=== PATIENT | female | born 1955 | race Caucasian/White ===

== ENCOUNTER → 2016-12-12 | Outpatient (CLI) | payer OTHER ==
[~2016-12-12] MED LIST: ADVAIR; AMLO5TAB2 PO; CETI10TA23 PO; FAMO40TA72 PO; FLUO10CA29 PO; FLUT1DIS26 IH; FLUT9.9S NS; MILK THISTLE; NARA1TAB PO; OMG1KC PO; PRX20T PO; VITAMINES; [UNRECOGNIZED DRUG - OTHER]; [UNRECOGNIZED DRUG - REMARK]; [UNRECOGNIZED DRUG - REMARK]
--- NOTE | 2016-12-13 17:41 | Diagnostic Imaging Report ---
Bilateral screening mammogram 2D views with tomosynthesis. The current study was also evaluated with a Computer Aided Detection (CAD) system. INDICATION: Screening. No current complaints stated on the questionnaire. COMPARISON: 10/21/15 FINDINGS: The breasts are composed of heterogeneously dense parenchyma which may decrease mammographic sensitivity. Allowing for technique and positional differences, no suspicious change is seen. IMPRESSION: No significant change. ACR BI-RADS Category 2: Benign findings. Result letter will be mailed to the patient. Note: At least 10% of breast cancer is not imaged by mammography. Dictated by: Dictated on workstation # [id number]
== END ==
LOC: RAD 10:34
PROVIDERS: ATTEND Family Medicine
DX: Z12.31 Encounter for screening mammogram for malignant neoplasm of breast (principal)
CPT/HCPCS: 77067

== ENCOUNTER → 2017-12-15 | Outpatient (CLI) | payer OTHER ==
--- NOTE | 2017-12-15 11:53 | Diagnostic Imaging Report ---
INDICATION: Routine screening. COMPARISON: 12/12/2016 and 10/21/2015. TECHNIQUE: 2D and 3D bilateral screening mammography was performed with CAD. FINDINGS: Both breasts remain heterogeneously dense, limiting the sensitivity of mammography. The benign nodular density in the upper outer right breast appears stable. A circumscribed rounded density in the medial right breast is noted and appears stable. There are benign calcifications bilaterally. No mass or malignant-appearing microcalcifications are seen. The axillae are unremarkable. IMPRESSION: No mammographic features suspicious for malignancy are identified. ACR BI-RADS Category 2: Benign findings. Result letter will be mailed to the patient. Note: At least 10% of breast cancer is not imaged by mammography. Dictated by: Dictated on workstation # [id number]
== END ==
LOC: RAD 10:06
PROVIDERS: ATTEND Family Medicine
DX: Z12.31 Encounter for screening mammogram for malignant neoplasm of breast (principal)
CPT/HCPCS: 77067

== ENCOUNTER → 2018-08-29 | Outpatient (CLI) | payer OTHER ==
[~2018-08-29] MED LIST changes: -AMLO5TAB2 PO; +AMLO5TAB9 PO; +RT-ALBUTEROL SULF 2.5 MG/3 ML PRE-MIX VIAL INH ONE; +RT-ALBUTEROL SULF 2.5 MG/3 ML PRE-MIX VIAL ONE
== END ==
LOC: RT 12:53
PROVIDERS: ATTEND Nurse Practitioner Family
DX: J45.909 Unspecified asthma, uncomplicated (principal); R06.09 Other forms of dyspnea; R05 Cough
CPT/HCPCS: 94060; 94726; 94729

== ENCOUNTER → 2018-09-28 | Outpatient (CLI) | payer OTHER ==
[~2018-09-28] MED LIST changes: +CATHETER FLUSH 10 ML SYR IV PRN; +HOLD METFORMIN - RECEIVED CONTRAST 20 ML VIAL IV SCH; +IOHEXOL 350 MG/ML 100 ML (OMNIPAQUE 350) VIAL IV ONE; -RT-ALBUTEROL SULF 2.5 MG/3 ML PRE-MIX VIAL INH ONE; -RT-ALBUTEROL SULF 2.5 MG/3 ML PRE-MIX VIAL ONE
[2018-09-28 11:07] LABS: CREATININE SERUM 1.01 MG/DL (0.60-1.30)
--- NOTE | 2018-09-28 13:27 | Diagnostic Imaging Report ---
PROCEDURE: CT chest with contrast only. TECHNIQUE: Multiple contiguous axial images were obtained through the chest after administration of intravenous contrast. Auto Exposure Controls were utilized during the CT exam to meet ALARA standards for radiation dose reduction. INDICATION: Shortness of breath. FINDINGS: There is a patchy alveolar nodular infiltrate in the posterior segment of the right upper lobe. Lungs are otherwise clear. There are no effusions or pneumothoraces. There is no hilar or mediastinal lymphadenopathy. IMPRESSION: Right upper lobe pneumonia. Dictated by: Dictated on workstation # [id number]
== END ==
LOC: RAD 10:37
PROVIDERS: ATTEND Nurse Practitioner Family
DX: J18.1 Lobar pneumonia, unspecified organism (principal); J45.909 Unspecified asthma, uncomplicated
CPT/HCPCS: 36415; 71260; 82565; 84520

== ENCOUNTER 2018-10-17 05:47 | Outpatient (CLI) | payer OTHER ==
[~2018-10-17] VITALS: Ht 162.6 cm; Wt 67.1 kg
[~2018-10-17 05:47] MED LIST changes: -CATHETER FLUSH 10 ML SYR IV PRN; -HOLD METFORMIN - RECEIVED CONTRAST 20 ML VIAL IV SCH; -IOHEXOL 350 MG/ML 100 ML (OMNIPAQUE 350) VIAL IV ONE
[2018-10-17] MEDS ORDERED: LISI-592 PO (11:14)
[2018-10-17] MEDS ORDERED: FLUT12AE6 IH (11:14)
[2018-10-17] MEDS ORDERED: MONT10TA24 PO (11:14)
== END 2018-10-17 12:18 | disposition home or self-care (01) ==
LOC: PREOP 05:47
PROVIDERS: ATTEND Internal Medicine Critical Care Medicine
DX: Z01.818 Encounter for other preprocedural examination (principal)

== ENCOUNTER 2018-10-18 09:58 | Day surgery (SDC) | payer OTHER ==
[~2018-10-18] VITALS: Ht 162.6 cm; Wt 67.1 kg
[~2018-10-18 09:58] MED LIST changes: +FLUT12AE6 IH; +LISI-592 PO; +MONT10TA24 PO
[2018-10-18] MEDS ORDERED: LIDOCAINE PF 2% 5 ML (XYLOCAINE) VIAL INJ ONE (09:59)
[2018-10-18] MEDS ORDERED: LIDOCAINE JELLY 2% 6 ML SYRINGE MM ONE (09:59)
[2018-10-18] MEDS ORDERED: LIDOCAINE PF 1% 2 ML VIAL IJ ONE (09:59)
[2018-10-18] MEDS ORDERED: NS IV 500 ML 500 ML ONE (10:06)
--- NOTE | 2018-10-18 10:14 | Progress Note-Pre Operative ---
Pre-Operative Progress Note H&P Reviewed The H&P was reviewed, patient examined and no changes noted. Date Seen by Provider: October 18, 2018 Time Seen by Provider: 10:45 Date H&P Reviewed: October 18, 2018 Time H&P Reviewed: 10:13 Pre-Operative Diagnosis: RML chronic infiltration CARMEN PORTER DO October 18, 2018 10:14
--- NOTE | 2018-10-18 10:15 | Pre-Op Note & Conscious Sedat ---
Pre-Operative Progress Note H&P Reviewed The H&P was reviewed, patient examined and no changes noted. Date H&P Reviewed: October 18, 2018 Time H&P Reviewed: 10:14 Conscious Sedation Pre-Proced Time 10:13 ASA Score 3 For ASA 3 and 4: Consider anesthesia and medical clearance. Also, for patients with a history of failed moderate sedation consider anesthesia. Airway Lungs Heart ASA score ASA 1: a normal healthy patient ASA 2: a patient with a mild systemic disease (mid diabetes, controlled hypertension, obesity ASA 3: a patient with a severe systemic disease that limits activity (angina, COPD, prior Myocardial infarction) ASA 4: a patient with an incapacitating disease that is a constant threat to life (CHF, renal failure) ASA 5: a moribund patient not expected to survive 24 hrs. (ruptured aneurysm) ASA 6: a declared brain- patient whose organs are being harvested. For emergent operations, add the letter E after the classification Mallampati Classification Grade 3 Sedation Plan Plan communicated to team members, Discussed options with patient/fam, Discussed risks with patient/fam The patient is an appropriate candidate to undergo the planned procedure, sedation, and anesthesia. The patient immediately re-assessed prior to indication. CARMEN PORTER DO October 18, 2018 10:15
[2018-10-18] MEDS ORDERED: MIDAZOLAM 2 MG/2 ML (VERSED) VIAL ONE ×4 (10:27)
[2018-10-18] MEDS ORDERED: fentaNYL INJECTION 100 MCG/2 ML AMP ONE ×2 (10:27)
[2018-10-18] MEDS ORDERED: NS IV 500 ML 500 ML IV PRN (11:32)
[2018-10-18 11:36] VITALS: BP 121/82
[2018-10-18 11:45] VITALS: BP 126/71
[2018-10-18] MEDS ORDERED: MIDAZOLAM 2 MG/2 ML (VERSED) VIAL IVP ONE (11:45)
[2018-10-18] MEDS ORDERED: fentaNYL INJECTION 100 MCG/2 ML AMP IVP ONE (11:45)
--- NOTE | 2018-10-18 11:55 | Diagnostic Imaging Report ---
INDICATION: Post bronchoscopy. FINDINGS: There is no pneumothorax or hemothorax. No effusion or focal pneumonia. No failure. IMPRESSION: No acute finding or post bronchoscopy complication apparent at frontal chest x-ray. Dictated by: Dictated on workstation # [id number]
[2018-10-18 12:10] VITALS: BP 121/87
[2018-10-18 12:56] VITALS: BP 121/87
--- NOTE | 2018-10-18 15:33 | Diagnostic Imaging Report ---
Indication: Fluoroscopy during bronchoscopy. Fluoroscopy was provided for Dr. Rodriguez during bronchoscopy. 7 seconds of fluoroscopy was utilized. Impression: Fluoroscopy during bronchoscopy. Dictated by: Dictated on workstation # [id number]
--- NOTE | 2018-10-31 11:00 | Pulmonary Procedures ---
Pulmonary Procedures Date of Procedure Date of Service: October 18, 2018 (late note for 10/18) Bronch Bronchoscopy with RML bronchoalveolar lavage (BAL), Bilateral washes and, RML transbronchial brushes. Preop DX infiltrate Postop DX: same Complications: none After informed consent obtained and formal time out pt was sedated using Fentanyl and Versed. Bronchoscope was advanced through the nare and vocal cords. 1% lidocaine was used to anesthetize vocal cords, epiglottis, rosalinda, and left/right main stem bronchus. An anatomical tour was undertaken down to the segmental bronchi bilaterally. No endobronchial lesions noted. From the RML bronchoalveolar lavage (BAL), Bilateral washes and, transbronchial RML brushes. were obtained. Pt tolerated procedure well. No complications noted. Stat CXR is pending. CARMEN PORTER DO Oct 31, 2018 11:00
== END 2018-10-18 12:20 | disposition home or self-care (01) ==
LOC: ENDO 09:58
PROVIDERS: ATTEND Internal Medicine Critical Care Medicine
DX: R06.09 Other forms of dyspnea (principal); J45.909 Unspecified asthma, uncomplicated; R05 Cough; R91.8 Other nonspecific abnormal finding of lung field; K21.9 Gastro-esophageal reflux disease without esophagitis; Z79.899 Other long term (current) drug therapy
CPT/HCPCS: 71045; 87015; 87070; 87101; 87116; 87205; 87206; 88112; 88305; 88312; 88341; 88342

== ENCOUNTER → 2019-01-10 | Outpatient (CLI) | payer OTHER ==
[~2019-01-10] MED LIST changes: +HOLD METFORMIN - RECEIVED CONTRAST 20 ML VIAL IV SCH; +IOHEXOL 350 MG/ML 100 ML (OMNIPAQUE 350) VIAL IV ONE; +NS 100 ML (IVPB) BAG IV ONE
[2019-01-10 09:33] LABS: BUN/CREATININE RATIO 18; CREATININE SERUM 0.89 MG/DL (0.60-1.30); GFR ESTIMATED > 60
--- NOTE | 2019-01-10 10:10 | Diagnostic Imaging Report ---
PROCEDURE: CT chest with contrast only. TECHNIQUE: Multiple contiguous axial images were obtained through the chest after administration of intravenous contrast. Auto Exposure Controls were utilized during the CT exam to meet ALARA standards for radiation dose reduction. INDICATION: Cough. COMPARISON: Comparison is 09/28/2018. FINDINGS: There is an area of consolidation with surrounding nodularity in the right upper lobe and to a lesser degree in the left upper lobe. Findings in keeping with an infection. This is increased slightly from the prior exam. No edema. No pleural effusion or pneumothorax. Heart size is normal. No pericardial effusion. Aorta is normal in caliber. No central pulmonary embolism. No axillary, supraclavicular or mediastinal lymphadenopathy. Limited views of the upper abdomen are unremarkable. There are no suspicious osseous lesions. IMPRESSION: 1. Slightly increased consolidation and nodularity involving the right upper lobe and to a lesser degree the left upper lobe. Findings in keeping with an infectious process, consider fungal or atypical organisms given that it has not resolved. Dictated by: Dictated on workstation # [id number]
== END ==
LOC: RAD 09:06
PROVIDERS: ATTEND Nurse Practitioner Family
DX: J18.1 Lobar pneumonia, unspecified organism (principal); J45.909 Unspecified asthma, uncomplicated; J98.11 Atelectasis; R91.1 Solitary pulmonary nodule
CPT/HCPCS: 36415; 71260; 82565; 84520

== ENCOUNTER → 2019-01-16 | Outpatient (CLI) | payer OTHER ==
[~2019-01-16] MED LIST changes: -HOLD METFORMIN - RECEIVED CONTRAST 20 ML VIAL IV SCH; -IOHEXOL 350 MG/ML 100 ML (OMNIPAQUE 350) VIAL IV ONE; -NS 100 ML (IVPB) BAG IV ONE
[2019-01-16 11:22] LABS: BUN/CREATININE RATIO 20; GFR ESTIMATED > 60
== END ==
LOC: RAD 10:46
PROVIDERS: ATTEND Nurse Practitioner Family
DX: J98.11 Atelectasis (principal); J45.909 Unspecified asthma, uncomplicated; R91.8 Other nonspecific abnormal finding of lung field
CPT/HCPCS: 36415; 82565; 84520; 93005

== ENCOUNTER → 2019-03-04 | Outpatient (CLI) | payer OTHER ==
--- NOTE | 2019-03-04 12:12 | Diagnostic Imaging Report ---
INDICATION: Routine screening. COMPARISON: 12/15/2017 and 12/12/2016. TECHNIQUE: 2D and 3D bilateral screening mammography was performed with CAD. FINDINGS: Scattered fibroglandular densities are identified bilaterally. The intraparenchymal lymph node in the upper-outer right breast appears stable. The nodular density in the medial aspect of the right breast is also stable. There are benign calcifications bilaterally. No spiculated mass or malignant appearing microcalcifications are seen. The axillae are unremarkable. IMPRESSION: No mammographic features suspicious for malignancy are identified. ACR BI-RADS Category 2: Benign findings. Result letter will be mailed to the patient. Note: At least 10% of breast cancer is not imaged by mammography. Dictated by: Dictated on workstation # [id number]
== END ==
LOC: RAD 10:30
PROVIDERS: ATTEND Family Medicine
DX: Z12.31 Encounter for screening mammogram for malignant neoplasm of breast (principal)
CPT/HCPCS: 77067

== ENCOUNTER → 2019-09-26 | Outpatient (CLI) | payer OTHER ==
[~2019-09-26] MED LIST changes: +HOLD METFORMIN - RECEIVED CONTRAST 20 ML VIAL IV SCH; +IOHEXOL 350 MG/ML 100 ML (OMNIPAQUE 350) VIAL IV ONE; -MONT10TA24 PO; +MONT10TA26 PO; +NS 100 ML (IVPB) BAG IV ONE
[2019-09-26 10:08] LABS: CREATININE SERUM 0.99 MG/DL (0.60-1.30)
--- NOTE | 2019-09-26 11:53 | Diagnostic Imaging Report ---
CLINICAL INDICATION: Followup chest CT scan from 01/10/2019 with lung parenchymal abnormalities. EXAM: Axial CT scan of the chest performed with 70 mL of Omnipaque 350 IV contrast. Sagittal and coronal reformatted images are created. Auto Exposure Controls were utilized during the CT exam to meet ALARA standards for radiation dose reduction. COMPARISON: CT scan of the chest with contrast dated 01/10/2019. There are stable bilateral apical pleural parenchymal thickening/scarring. There is improved aeration of the posterior aspect of the right upper lobe with residual areas of minimal bronchiectasis with grouped area of centrilobular nodules and slight tree-in-bud appearance in a similar distribution of the area of parenchymal abnormality and consolidation. There is no significant residual consolidation in the area. Stable small amount of amorphous peripheral consolidation in the anterior right lung base likely representing scarring. There is decrease amount in size of the patchy cleo-bronchovascular nodular areas in the posterior left upper lobe. With residual small amount remaining. Stable minimal atelectasis or scarring in the basilar left lingular region. Remainder of lungs are clear and stable. There is no developing abnormality seen. There is no pleural effusion or pneumothorax. Thyroid gland is unremarkable. Stable size nonspecific mediastinal and right hilar lymph nodes. Stable marker precarinal lymph node measuring roughly 10 mm x 15 mm in AP and transverse dimensions. Small hiatal hernia seen. Visualized portions upper abdominal structures show no other significant abnormality. There are degenerative spurs involving the thoracic spine. IMPRESSION: 1: There is interval decrease in amount and size of the airspace opacities involving the posterior bilateral right upper lobes (right side more than the left) with residual small amount of cleo-bronchovascular nodular areas. This may be related to chronic infectious or inflammatory process. Followup chest CT scan in 6 months is suggested to evaluate for complete resolution. 2: Stable mildly prominent mediastinal and right hilar lymph nodes. Dictated by: Dictated on workstation # [id number]
== END ==
LOC: RAD 09:35
PROVIDERS: ATTEND Nurse Practitioner Family
DX: R91.8 Other nonspecific abnormal finding of lung field (principal); R05 Cough
CPT/HCPCS: 36415; 71260; 82565; 84520

== ENCOUNTER → 2020-03-02 | Outpatient (CLI) | payer OTHER ==
[~2020-03-02] MED LIST changes: -HOLD METFORMIN - RECEIVED CONTRAST 20 ML VIAL IV SCH; -IOHEXOL 350 MG/ML 100 ML (OMNIPAQUE 350) VIAL IV ONE; -NS 100 ML (IVPB) BAG IV ONE
== END ==
LOC: LABNPT 05:58
PROVIDERS: ATTEND Orthopaedic Surgery
DX: Z01.812 Encounter for preprocedural laboratory examination (principal); Z20.828 Contact with and (suspected) exposure to other viral communicable diseases
CPT/HCPCS: 87635

== ENCOUNTER → 2020-05-11 | Outpatient (CLI) | payer OTHER ==
[~2020-05-11] MED LIST changes: +AMLO-250 PO; -AMLO5TAB9 PO; +CATHETER FLUSH 10 ML SYR IV PRN; +HOLD METFORMIN - RECEIVED CONTRAST 20 ML VIAL IV SCH; +IOHEXOL 350 MG/ML 100 ML (OMNIPAQUE 350) VIAL IV ONE; -MONT10TA26 PO; +MONT10TA97 PO; +NS 100 ML (IVPB) BAG IV ONE
[2020-05-11 13:23] LABS: BUN/CREATININE RATIO 22; CREATININE SERUM 0.87 MG/DL (0.60-1.30); GFR ESTIMATED > 60
--- NOTE | 2020-05-11 15:13 | Diagnostic Imaging Report ---
PROCEDURE: CT chest with contrast only. TECHNIQUE: Multiple contiguous axial images were obtained through the chest after administration of intravenous contrast. Auto Exposure Controls were utilized during the CT exam to meet ALARA standards for radiation dose reduction. DATE: 05/11/2020 COMPARISON: CT chest September 26, 2019. INDICATION: 64-year-old female, history of cough. Followup pulmonary nodules. FINDINGS: There is a 5 mm noncalcified nodule in the right lung apex on axial image 13 which is unchanged. This is unchanged since at least January 12, 2015. There is a 4 mm noncalcified right upper lobe pulmonary nodule which appears to be a pleurally based on axial image 44 which is unchanged since the recent exam. There are tree-in-bud micronodules present in the right upper lobe, right middle lobe, and left upper lobe. The degree of tree-in-bud nodularity is essentially unchanged. Tree-in-bud nodularity in this distribution is present dating back to at least January 12, 2015. There is no new or enlarging pulmonary nodule. The central airways are patent. There is no pneumothorax. There is no pleural effusion. There is no identified central pulmonary embolus. There is limited evaluation for peripheral pulmonary emboli given the timing of the contrast bolus. The heart is not enlarged. There is no identified pericardial effusion. There is no identified abnormally enlarged mediastinal, hilar, or axillary lymph node which meets CT size criteria for adenopathy. There is mild diffuse fatty infiltration of the liver. There are mild atherosclerotic calcifications. There is a subcentimeter sclerotic lesion of the L2 vertebral body on axial image 105 which most likely relates to a small benign bone island although cannot be definitively characterized. There is no aggressive appearing bone lesion. There are degenerative changes of the spine. IMPRESSION: CT CHEST. 1. 4 mm pleural-based right upper lobe pulmonary nodule which is stable since the most recent comparison CT chest although not definitely present on January 12, 2015. There is a 5 mm benign noncalcified right upper lobe pulmonary nodule stable since at least 2014. 2. Tree-in-bud nodularity in the right upper lobe, right middle lobe, and left upper lobe which is seen dating back to at least January 12, 2015 and has not increased in extent. This is compatible to sequela of prior process spreading via endobronchial means which is most likely the result or prior infectious bronchiolitis given distribution. Sequela of prior aspiration is the additional differential diagnostic consideration. 3. No evidence of an acute cardiopulmonary abnormality currently. 4. Mild diffuse fatty infiltration of the liver. Dictated by: Dictated on workstation # [id number]
== END ==
LOC: RAD 11:53
PROVIDERS: ATTEND Internal Medicine Critical Care Medicine
DX: Z01.812 Encounter for preprocedural laboratory examination (principal); R91.8 Other nonspecific abnormal finding of lung field; K76.0 Fatty (change of) liver, not elsewhere classified; R59.1 Generalized enlarged lymph nodes
CPT/HCPCS: 36415; 71260; 82565; 84520

== ENCOUNTER → 2021-03-17 | Outpatient (CLI) | payer MEDICARE, OTHER ==
[~2021-03-17] MED LIST changes: -CATHETER FLUSH 10 ML SYR IV PRN; -HOLD METFORMIN - RECEIVED CONTRAST 20 ML VIAL IV SCH; -IOHEXOL 350 MG/ML 100 ML (OMNIPAQUE 350) VIAL IV ONE; +MONT10TA32 PO; -MONT10TA97 PO; -NS 100 ML (IVPB) BAG IV ONE
--- NOTE | 2021-03-17 11:35 | Diagnostic Imaging Report ---
PROCEDURE: CT chest without contrast. TECHNIQUE: Multiple contiguous axial images were obtained through the chest without the use of intravenous contrast. Auto Exposure Controls were utilized during the CT exam to meet ALARA standards for radiation dose reduction. DATE: March 17, 2021. COMPARISON: CT chest May 11, 2020. INDICATION: 65-year-old female, followup pulmonary nodule. PROCEDURE: Axial noncontrasted CT images of the chest. Noncontrasted limits the evaluation of the mediastinum and vascular structures. FINDINGS: There is a 6 mm nodule in the right lung apex on axial image 21. There is tree-in-bud nodularity in the right upper lobe and right middle lobe. There is no pneumothorax. There is no pleural effusion. The central airways are patent. The heart is not enlarged. There is no pericardial effusion. There is no identified abnormally enlarged mediastinal or axillary lymph node meeting CT size criteria for adenopathy. There is an accessory splenule. Additional limited assessment of the partially imaged portions of the upper abdomen is unremarkable. There are multilevel degenerative changes of the spine. There is no acute bony abnormality. There is partial ankylosis across the T4-T5 disc space. IMPRESSION: 1. There is a 6 mm nodule in the right lung apex which is unchanged since at least September 2018, consistent with benign etiology. The previously noted 4 mm pleurally based right upper lobe pulmonary nodule is stable since April 2020. 2. Tree-in-bud nodularity present in the right upper lobe and right middle lobe is also unchanged and likely relates to sequela of prior process spreading via endobronchial means which is most likely the result of prior infectious bronchiolitis given distribution. Dictated by: Dictated on workstation # [id number]
--- NOTE | 2021-03-17 12:18 | Diagnostic Imaging Report ---
INDICATION: Routine screening. Comparison is made with prior mammogram from 03/04/2019 and 12/15/2017. 2-D and 3-D bilateral screening mammography was performed with CAD. Both breasts are heterogeneously dense, limiting the sensitivity of mammography. There are benign nodules in the right breast appears stable. No new mass or malignant appearing microcalcifications are seen. There are benign calcifications in both breasts. The axillae are unremarkable. IMPRESSION: BI-RADS Category 2 No mammographic features suspicious for malignancy are identified. ACR BI-RADS Category 2: Benign findings. Result letter will be mailed to the patient. Note: At least 10% of breast cancer is not imaged by mammography. Dictated by: Dictated on workstation # [id number]
== END ==
LOC: RAD 10:02
PROVIDERS: ATTEND Family Medicine
DX: Z12.31 Encounter for screening mammogram for malignant neoplasm of breast (principal); R91.8 Other nonspecific abnormal finding of lung field
CPT/HCPCS: 71250; 77063; 77067

== ENCOUNTER 2021-07-26 08:01 | Emergency (ER) | payer MEDICARE ==
[~2021-07-26] VITALS: Ht 162 cm; Wt 66.6 kg
[~2021-07-26 08:01] MED LIST changes: -CETI10TA23 PO; +CETI10TA24 PO; +MONT-40 PO; -MONT10TA32 PO
--- NOTE | 2021-07-26 08:26 | ED Headache ---
General Chief Complaint: Head/Cervical Problems Stated Complaint: NECK / HEAD PAIN Nursing Triage Note: PT PRESENTS TO ED VIA POV FROM HOME WITH COMPLAINTS OF LEON X ONE MONTH. PT REPORTS SHE WENT TO THE CHIROPRACTER ON MONDAY AND MONDAY LAST WEEK AND HAS HAD INCREASED NECK PAIN AND LEON SINCE. Source: patient Exam Limitations: no limitations History of Present Illness Date Seen by Provider: Jul 26, 2021 Time Seen by Provider: 08:13 Initial Comments Patient is a 65yo female that has had intermittent LEON for about 1 month - taking "lots" of ibuprofen. She states she has been applying ice packs. Movement at the neck hurts. She states that she went and saw the Chiropracter on Monday and Monday of last week and her headache significantly increased in intensity. "Ibuprofen isnt working". She denies any vision change, speeck difficulty. No arm numbness, weakness or tingling. No other associated symptoms other than severe pain that she rates as currently an "8 1/2". SHe has a history of smoking (quit 30y ago) and takes medication for High blood pressure. Gerd. Uses an inhaler. No trauma reported. All other ROS reviewed and negative except as stated. Timing/Duration: constant, increasing Severity/Quality: severe, achy, pressure, throbbing Location: occipital Prior Headaches/Recent Trauma: occasional headaches Modifying Factors: worse with movement Associated Symptoms: denies symptoms Allergies and Home Medications Allergies Coded Allergies: Penicillins (Unverified Allergy, Mild, "DID SOMETHING FUNNY TO HER EYES", 10/17/18) Patient Home Medication List Home Medication List Reviewed: Yes Amlodipine Besylate (Amlodipine Besylate) 5 Mg Tablet, 5 MG PO DAILY, (Reported) Entered as Reported by: HAFSA NEWTON on 02/04/15942 Cetirizine HCl (Cetirizine HCl) 10 Mg Tab.chew, 10 MG PO DAILY, (Reported) Entered as Reported by: HAFSA NEWTON on 02/04/15943 Famotidine (Pepcid) 40 Mg Tablet, 40 MG PO DAILY, (Reported) Entered as Reported by: HAFSA NEWTON on 02/04/15941 Fluoxetine HCl (Prozac) 10 Mg Capsule, 10 MG PO DAILY, (Reported) Entered as Reported by: HAFSA NEWTON on 9/9/15 0945 Fluticasone Propionate (Flonase Allergy Relief) 9.9 Ml [place].susp, 9.9 ML NS DAILY, (Reported) Entered as Reported by: HAFSA NEWTON on 02/04/15 0946 Fluticasone/Salmeterol (Advair Hfa 230-21 Mcg Inhaler) 12 Gm Hfa.aer.ad, 12 GM IH BID, (Reported) Entered as Reported by: FRANKIE RENDON on 10/17/18 1114 Lisinopril/Hydrochlorothiazide (Zestoretic 20-12.5 mg Tablet) 1 Each Tablet, 1 EACH PO DAILY, (Reported) Entered as Reported by: FRANKIE RENDON on 10/17/18 111 Montelukast Sodium (Montelukast Sodium) 10 Mg Tablet, 10 MG PO DAILY, (Reported) Entered as Reported by: FRANKIE RENDON on 10/17/18 1114 Review of Systems Review of Systems Constitutional: see HPI Eyes: No Symptoms Reported Ears, Nose, Mouth, Throat: no symptoms reported Respiratory: no symptoms reported Cardiovascular: no symptoms reported Gastrointestinal: no symptoms reported Genitourinary: no symptoms reported : No Musculoskeletal: muscle pain, neck pain Skin: no symptoms reported Psychiatric/Neurological: Headache All Other Systems Reviewed Negative Unless Noted: Yes Past Zhxoxmq-Woppcl-Pqaiwl Hx Patient Social History Tobacco Use?: No Substance use?: No Alcohol Use?: Yes Alcohol Frequency: Once in a while Pt feels they are or have been: No Seasonal Allergies Seasonal Allergies: Yes Past Medical History Surgery/Hospitalization HX: PMH: ASTHMA, HTN SX: APPY, C-SEC, HYST Surgeries: Yes (HERNIA, FINGER, CS X4) Appendectomy, Hysterectomy Respiratory: Yes Asthma Cardiac: Yes Hypertension Neurological: Yes Headaches /Migraines Reproductive Disorders: No Sexually Transmitted Disease: No Genitourinary: No Gastrointestinal: Yes Gastroesophageal Reflux Musculoskeletal: Yes Arthritis, Chronic Back Pain Endocrine: No HEENT: Yes (READING GLASSES) Loss of Vision: Bilateral Hearing Impairment: Denies Cancer: No Psychosocial: No (TAKES PROZAC FOR HEADACHES) Integumentary: No Blood Disorders: No Adverse Reaction/Blood Tranf: No (N/A) Physical Exam Vital Signs Vital Signs - First Documented 07/26/21 08:05 Temp 36.1 Pulse 99 Resp 99 B/P (MAP) 143/101 (115) Pulse Ox 96 Capillary Refill : Less Than 3 Seconds Height, Weight, BMI Height: 5'4.00" Weight: 148lbs. 0.0oz. 67.410648fo; 25.00 BMI Method: General Appearance: WD/WN, no apparent distress HEENT: PERRL/EOMI Neck: full range of motion, supple, normal inspection, other (painful ROM in all directions) Cardiovascular: regular rate, rhythm (tachy at 103) Respiratory: lungs clear, normal breath sounds, no respiratory distress, no accessory muscle use Back: no vertebral tenderness Extremities: normal range of motion, non-tender, normal inspection Psychiatric: alert, oriented x 3 Crainal Nerves: normal hearing, normal speech, PERRL Coordination/Gait: normal gait Motor/Sensory: no motor deficit, no sensory deficit Skin: normal color, warm/dry Progress/Results/Core Measures Results/Orders Lab Results Laboratory Tests Test 07/26/21 08:26 Range/Units White Blood Count 5.1 4.3-11.0 10^3/uL Red Blood Count 4.78 3.80-5.11 10^6/uL Hemoglobin 14.8 11.5-16.0 g/dL Hematocrit 43 35-52 % Mean Corpuscular Volume 91 80-99 fL Mean Corpuscular Hemoglobin 31 25-34 pg Mean Corpuscular Hemoglobin Concent 34 32-36 g/dL Red Cell Distribution Width 12.8 10.0-14.5 % Platelet Count 237 130-400 10^3/uL Mean Platelet Volume 10.7 9.0-12.2 fL Immature Granulocyte % (Auto) 0 % Neutrophils (%) (Auto) 65 42-75 % Lymphocytes (%) (Auto) 25 12-44 % Monocytes (%) (Auto) 6 0-12 % Eosinophils (%) (Auto) 3 0-10 % Basophils (%) (Auto) 0 0-10 % Neutrophils # (Auto) 3.3 1.8-7.8 10^3/uL Lymphocytes # (Auto) 1.3 1.0-4.0 10^3/uL Monocytes # (Auto) 0.3 0.0-1.0 10^3/uL Eosinophils # (Auto) 0.1 0.0-0.3 10^3/uL Basophils # (Auto) 0.0 0.0-0.1 10^3/uL Immature Granulocyte # (Auto) 0.0 0.0-0.1 10^3/uL Sodium Level 136 135-145 MMOL/L Potassium Level 3.9 3.6-5.0 MMOL/L Chloride Level 105 98-107 MMOL/L Carbon Dioxide Level 19 L 21-32 MMOL/L Anion Gap 12 5-14 MMOL/L Blood Urea Nitrogen 12 7-18 MG/DL Creatinine 0.79 0.60-1.30 MG/DL Estimat Glomerular Filtration Rate 83 BUN/Creatinine Ratio 15 Glucose Level 145 H 70-105 MG/DL Calcium Level 9.4 8.5-10.1 MG/DL C-Reactive Protein High Sensitivity 0.74 H 0.00-0.50 MG/DL My Orders Orders - GERRY LOPEZ MD Ed Iv/Invasive Line Start (07/26/21 08:18) Cbc With Automated Diff (07/26/21 08:18) Basic Metabolic Panel (07/26/21 08:18) Ct Angio Head/Neck (07/26/21 08:18) Ns Iv 1000 Ml (Sodium Chloride 0.9%) (07/26/21 08:30) Orphenadrine Inj (Ed Only) (Norflex Inje (07/26/21 08:30) Hs C Reactive Protein (07/26/21 08:18) Iohexol Injection (Omnipaque 350 Mg/Ml 1 (07/26/21 09:15) Received Contrast (Hold Metformin- Contr (07/26/21 09:15) Ns (Ivpb) (Sodium Chloride 0.9% Ivpb Bag (07/26/21 09:15) Sodium Chloride Flush (Catheter Flush Sy (07/26/21 09:15) Ketorolac Injection (Toradol Injection) (07/26/21 10:00) Medications Given in ED Current Medications Medications Dose Ordered Sig/Nirav Route Start Time Stop Time Status Last Admin Dose Admin Iohexol 75 ml ONCE ONCE IV 07/26/21 09:15 07/26/21 09:16 DC 07/26/21 09:22 75 ML Ketorolac Tromethamine 30 mg ONCE ONCE IVP 07/26/21 10:00 07/26/21 10:01 DC 07/26/21 10:00 30 MG Orphenadrine Citrate 60 mg ONCE ONCE IV 07/26/21 08:30 07/26/21 08:31 DC 07/26/21 08:29 60 MG Sodium Chloride 10 ml NEEDED PRN IV 07/26/21 09:15 07/26/21 09:23 10 ML Sodium Chloride 100 ml ONCE ONCE IV 07/26/21 09:15 07/26/21 09:16 DC 07/26/21 09:23 80 ML Vital Signs/I&O 07/26/21 08:05 Temp 36.1 Pulse 99 Resp 99 B/P (MAP) 143/101 (115) Pulse Ox 96 Blood Pressure Mean: 115 Progress Progress Note #1: Time: 09:46 Progress Note re-checked, states feels about the same. Will add toradol at this time. Progress Note #2: Time: 10:49 Progress Note Patient reevaluated, she looks much better. She states the medicine is working. We discussed laboratory studies as well as imaging. I did inform her of the abnormal findings of old subdural versus hygroma noted on CT. Patient denies any significant head trauma in her history. Will have her follow-up these findings with Dr. PEREIRA, her primary care doctor. Patient is given return precautions. She and her who is at the bedside verbalized understanding of the plan of care and are comfortable with it. All questions are sought and answered. Diagnostic Imaging Diagonstic Imaging: CT Comments [facility], [place] NAME: GT SAMS [facility] REC#: [id number] PT STATUS: REG ER : 1955 PHYSICIAN: GERRY LOPEZ MD ADMIT DATE: 07/26/21/ER Draft Date of Exam:07/26/21 CT ANGIO HEAD/NECK PROCEDURE: CT angiography of the head and CT angiography of the neck with and without contrast. TECHNIQUE: Contiguous noncontrast images were obtained from the skull base through the vertex. After intravenous contrast administration, helical CT angiography of the neck was performed. Source data was reformatted into 3D MIP projections. Delayed post contrast acquisition was also obtained. Auto Exposure Controls were utilized during the CT exam to meet ALARA standards for radiation dose reduction. INDICATION: Severe neck and headache. COMPARISON: CT chest without contrast 03/17/2021. FINDINGS: Noncontrast head CT demonstrates bilateral low-attenuation extra-axial fluid collections overlying the frontal parietal convexities bilaterally. These measure up to 1.1 cm in thickness on the right and 0.7 cm in thickness on the left. No midline shift. No hydrocephalus. No CT evidence of a territorial infarction. No abnormal intracranial enhancement on delayed postcontrast imaging. CTA demonstrates no high-grade narrowing, aneurysm or dissection involving the basilar, bilateral vertebral, common carotid, internal carotid, anterior cerebral, middle cerebral and posterior cerebral arteries. 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 The dural venous sinuses are normally opacified. Normal alignment of the cervical spine. No acute osseous findings. Advanced facet arthropathy on the left at C2-C6. Visualized paravertebral soft tissues are unremarkable. Paranasal sinuses and mastoids are clear. Patchy airspace opacities in the right lung apex. IMPRESSION: 1. Bilateral low-attenuation extra-axial fluid collections, measuring up to 1.1 cm in thickness on the right and 0.7 cm on the left, could represent chronic subdural hemorrhages versus hygromas. This could be further evaluated with MRI. 2. No high-grade narrowing, aneurysm or dissection involving major arteries in the head and neck. 3. Patchy airspace opacities in the right lung apex are partially visualized but appear to have progressed since 03/17/2021. Recommend correlation with clinical findings. This could be further evaluated with dedicated chest CT. Dictated on workstation # [id number] Dict: 07/26/21 0943 Trans: 07/26/21 1000 [facility] [id number] Interpreted by: LONNY JOHN MD Electronically signed by: Departure Impression Primary Impression: Headache, occipital Disposition: HOME, SELF-CARE Condition: Improved Departure-Patient Inst. Decision time for Depature: 10:50 Referrals: ZHOU PEREIRA DO (PCP/Family) Primary Care Physician Patient Instructions: Headache, Adult ED Add. Discharge Instructions: Drink plenty of fluids to stay well-hydrated. I have given you prescriptions for muscle relaxers as well as some hydrocodone. Take the hydrocodone only as needed for severe pain or at night to help with sleep over the next few days. Both of these medications may make you sleepy and can contribute to constipation. Do not drive and take them. Follow-up with Dr. Pereira within the next week to 10 days. Come back to the emergency department for worsening headache especially associated with vomiting, speech or vision changes, weakness or any other emergent concerning symptoms. Scripts Cyclobenzaprine HCl (Cyclobenzaprine HCl) 10 Mg Tablet 10 MG PO Q8H PRN for SPASMS, #9 TAB 0 Refills Prov: GERRY LOPEZ MD 07/26/21 Hydrocodone/Acetaminophen (Hydrocodone-Acetamin 5-325 mg) 1 Each Tablet 1 TAB PO Q6H PRN for PAIN-MODERATE (5-7), #6 TAB Prov: GERRY LOPEZ MD 07/26/21 Copy Copies To 1: ZHOU PEREIRA KATHRYN M MD Jul 26, 2021 08:26
[2021-07-26] MEDS ORDERED: NS IV 1000 ML 1,000 ML IV SCH (08:30)
[2021-07-26] MEDS ORDERED: ORPHENADRINE 60 MG/2 ML (NORFLEX) AMP (ED ONLY) IV ONE (08:30)
[2021-07-26 08:33] LABS: BASOPHILS % (AUTO) 0 % (0-10); EOSINOPHILS # (AUTO) 0.1 10^3/uL (0.0-0.3); EOSINOPHILS % (AUTO) 3 % (0-10); HEMATOCRIT 43 % (35-52); HEMOGLOBIN 14.8 g/dL (11.5-16.0); LYMPHOCYTES # (AUTO) 1.3 10^3/uL (1.0-4.0); LYMPHOCYTES % (AUTO) 25 % (12-44); MEAN CORPUSCULAR HEMOGLOBIN 31 pg (25-34); MEAN CORPUSCULAR HGB CONC 34 g/dL (32-36); MEAN CORPUSCULAR VOLUME 91 fL (80-99); MEAN PLATELET VOLUME 10.7 fL (9.0-12.2); MONOCYTES # (AUTO) 0.3 10^3/uL (0.0-1.0); MONOCYTES % (AUTO) 6 % (0-12); NEUTROPHILS # (AUTO) 3.3 10^3/uL (1.8-7.8); NEUTROPHILS % (AUTO) 65 % (42-75); PLATELET COUNT 237 10^3/uL (130-400); WHITE BLOOD COUNT 5.1 10^3/uL (4.3-11.0)
[2021-07-26 09:05] LABS: POTASSIUM 3.9 MMOL/L (3.6-5.0)
[2021-07-26 09:06] LABS: CALCIUM 9.4 MG/DL (8.5-10.1)
[2021-07-26 09:11] LABS: CREATININE SERUM 0.79 MG/DL (0.60-1.30)
[2021-07-26] MEDS ORDERED: HOLD METFORMIN - RECEIVED CONTRAST 20 ML VIAL IV SCH (09:15)
[2021-07-26] MEDS ORDERED: NS 100 ML (IVPB) BAG IV ONE (09:15)
[2021-07-26] MEDS ORDERED: CATHETER FLUSH 10 ML SYR IV PRN (09:15)
[2021-07-26] MEDS ORDERED: IOHEXOL 350 MG/ML 100 ML (OMNIPAQUE 350) VIAL IV ONE (09:15)
[2021-07-26] MEDS ORDERED: KETOROLAC 30 MG/ML VIAL IVP ONE (10:00)
--- NOTE | 2021-07-26 10:01 | Diagnostic Imaging Report ---
PROCEDURE: CT angiography of the head and CT angiography of the neck with and without contrast. TECHNIQUE: Contiguous noncontrast images were obtained from the skull base through the vertex. After intravenous contrast administration, helical CT angiography of the neck was performed. Source data was reformatted into 3D MIP projections. Delayed post contrast acquisition was also obtained. Auto Exposure Controls were utilized during the CT exam to meet ALARA standards for radiation dose reduction. INDICATION: Severe neck and headache. COMPARISON: CT chest without contrast 03/17/2021. FINDINGS: Noncontrast head CT demonstrates bilateral low-attenuation extra-axial fluid collections overlying the frontal parietal convexities bilaterally. These measure up to 1.1 cm in thickness on the right and 0.7 cm in thickness on the left. No midline shift. No hydrocephalus. No CT evidence of a territorial infarction. No abnormal intracranial enhancement on delayed postcontrast imaging. CTA demonstrates no high-grade narrowing, aneurysm or dissection involving the basilar, bilateral vertebral, common carotid, internal carotid, anterior cerebral, middle cerebral and posterior cerebral arteries. 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 The dural venous sinuses are normally opacified. Normal alignment of the cervical spine. No acute osseous findings. Advanced facet arthropathy on the left at C2-C6. Visualized paravertebral soft tissues are unremarkable. Paranasal sinuses and mastoids are clear. Patchy airspace opacities in the right lung apex. IMPRESSION: 1. Bilateral low-attenuation extra-axial fluid collections, measuring up to 1.1 cm in thickness on the right and 0.7 cm on the left, could represent chronic subdural hemorrhages versus hygromas. This could be further evaluated with MRI. 2. No high-grade narrowing, aneurysm or dissection involving major arteries in the head and neck. 3. Patchy airspace opacities in the right lung apex are partially visualized but appear to have progressed since 03/17/2021. Recommend correlation with clinical findings. This could be further evaluated with dedicated chest CT. Dictated by: Dictated on workstation # [id number]
[2021-07-26] MEDS ORDERED: ACHD5005 PO (10:51)
[2021-07-26] MEDS ORDERED: CYCL10TA25 PO (10:53)
[2021-07-26 11:11] VITALS: BP 127/88
== END 2021-07-26 11:11 | disposition home or self-care (01) ==
LOC: EDUNIT# 08:01 → ER 08:02
DX: R51.9 Headache, unspecified (principal); I10 Essential (primary) hypertension
CPT/HCPCS: 36415; 70496; 70498; 80048; 85025; 86141; 96361; 96374; 96375

== ENCOUNTER → 2021-08-23 | Outpatient (CLI) | payer MEDICARE ==
[~2021-08-23] MED LIST changes: +ACHD5005 PO; +CYCL10TA25 PO
--- NOTE | 2021-08-23 10:21 | Diagnostic Imaging Report ---
PROCEDURE: MR imaging cervical spine without contrast. TECHNIQUE: Multiplanar, multisequence MR imaging of the cervical spine was performed without contrast. DATE: August 23, 2021. COMPARISON: CT angiography head and neck July 26, 2021. INDICATION: 65-year-old female, head and neck pain. FINDINGS: The alignment of the cervical spine is unremarkable. There is no evidence of a diffuse marrow infiltrating or replacing process. There is a large benign C7 vertebral body hemangioma. There is no focal concerning bone lesion. The visualized spinal cord is unremarkable. The disc heights are well preserved. C2-C3: There is a posterior disc osteophyte complex eccentric to the left. There are mild left uncovertebral degenerative changes and left facet degenerative changes. There is mild left foraminal narrowing. There is no spinal canal stenosis. C3-C4: There is a small posterior disc osteophyte complex. The uncovertebral and facet joints are unremarkable. There is no foraminal narrowing. There is no spinal canal stenosis. C4-C5: There is no disc bulge. There are right uncovertebral degenerative changes. There is mild to moderate right foraminal narrowing. There is no spinal canal stenosis. C5-C6: There is no disc bulge. There are left facet degenerative changes. There is mild left foraminal narrowing. There is no spinal canal stenosis. C6-C7: There is a small posterior disc osteophyte complex. The uncovertebral and facet joints are unremarkable. There is no foraminal narrowing. There is no spinal canal stenosis. C7-T1: There is no disc bulge. The uncovertebral and facet joints are unremarkable. There is no foraminal narrowing. There is no spinal canal stenosis. IMPRESSION: 1. Disc, uncovertebral, and facet degenerative changes of the cervical spine as described level by level above. There is mild left foraminal narrowing at C2-C3, mild to moderate right foraminal narrowing at C4-C5, and mild left foraminal narrowing at C5-C6. 2. No abnormal cord signal or high-grade spinal stenosis. 3. Benign C7 vertebral body hemangioma. Dictated by: Dictated on workstation # [id number]
--- NOTE | 2021-08-23 11:04 | Diagnostic Imaging Report ---
PROCEDURE: MR imaging of the brain without contrast. TECHNIQUE: Multiplanar, multisequence MR imaging of the brain was performed without contrast. INDICATION: Head and neck pain. Correlation is made with head CT performed 07/18/2021. Ventricular size and sulcal pattern is stable. The extra-axial fluid collections along the cerebral convexities is again noted and appears similar to recent CT head study. These have the appearance of chronic subdural hematomas although T1-weighted noncontrast images does show some small areas of hyperintensity along the right frontal convexity consistent with minimal acute component. These do not exert any mass effect or midline shift. There is no hydrocephalus. No diffusion restriction is seen. The normal expected flow-voids within the carotid siphons are seen. Cisterns are patent. The overall thickness of the subdural collections appears similar to recent head CT. Corpus callosum is unremarkable. The sella and parasellar structures are unremarkable. 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 There is trace acute component along the right frontal convexity. No mass effect, midline shift or hydrocephalus is identified. Dictated by: Dictated on workstation # [id number]
== END ==
LOC: RAD 09:30
PROVIDERS: ATTEND Family Medicine
DX: M47.812 Spondylosis without myelopathy or radiculopathy, cervical region (principal); M48.02 Spinal stenosis, cervical region; D18.09 Hemangioma of other sites; M25.78 Osteophyte, vertebrae
CPT/HCPCS: 70551; 72141

== ENCOUNTER → 2021-11-25 | Outpatient (CLI) | payer MEDICARE ==
--- NOTE | 2021-11-25 13:13 | Diagnostic Imaging Report ---
EXAMINATION: CT chest without contrast. TECHNIQUE: Multiple contiguous axial images were obtained through the chest without the use of intravenous contrast. All CT scans use one or more of the following dose optimizing techniques: automated exposure control, MA and/or KvP adjustment based on patient size and exam type or iterative reconstruction. HISTORY: Follow-up pulmonary nodule. Six-month checkup. COMPARISON: 03/17/2021. FINDINGS: The heart size is within normal limits. No pericardial effusion is present. There is no mediastinal, hilar, or axillary lymphadenopathy. There is decrease in tree-in-bud opacities within the right upper and midlung compared to the prior exam. A nodule within the mid right lung measures 0.4 cm, unchanged compared to the prior exam. The nodule in the right upper lobe measuring 0.6 cm is stable and may represent apical scarring. No new suspicious pulmonary nodules. No focal consolidations. No central endobronchial obstructing lesions. There is no pleural effusion or pneumothorax. The osseous structures demonstrate no acute abnormalities. Limited views of the upper abdominal structures demonstrate no acute abnormalities. Both adrenal glands are unremarkable. IMPRESSION: 1. Stable nodules in the right lung measuring up to 0.6 cm. No new suspicious pulmonary nodules are seen. Recommend follow-up chest CT in 12 months to ensure stability. 2. Improved aeration with decreased tree-in-bud opacities in the right mid and upper lung, likely representing improving inflammatory/infectious process. No focal consolidations. Dictated by: Dictated on workstation # [id number]
== END ==
LOC: RAD 11:46
PROVIDERS: ATTEND Internal Medicine Critical Care Medicine
DX: J45.30 Mild persistent asthma, uncomplicated (principal); R91.8 Other nonspecific abnormal finding of lung field
CPT/HCPCS: 71250

== ENCOUNTER → 2022-06-01 | Outpatient (CLI) | payer MEDICARE ==
--- NOTE | 2022-06-01 20:37 | Diagnostic Imaging Report ---
INDICATION: Routine screening. COMPARISON: Prior mammograms from 03/17/2021 and 03/04/2019. EXAMINATION: 2D and 3D bilateral screening mammography was performed with CAD. The current study was also evaluated with a Computer Aided Detection (CAD) system. FINDINGS: Both breasts are heterogeneously dense, limiting the sensitivity of mammography. There are multiple nodular densities in the right breast which appear to be stable and likely benign. There are scattered benign calcifications in both breasts. No spiculated mass or malignant-appearing microcalcifications are seen. Axillae are unremarkable. IMPRESSION: No mammographic features suspicious for malignancy are identified. ACR BI-RADS Category 2: Benign findings. Result letter will be mailed to the patient. Note: At least 10% of breast cancer is not imaged by mammography. Dictated by: Dictated on workstation # [id number]
== END ==
LOC: RAD 10:28
PROVIDERS: ATTEND Family Medicine
DX: Z12.31 Encounter for screening mammogram for malignant neoplasm of breast (principal)
CPT/HCPCS: 77063; 77067

== ENCOUNTER 2022-06-14 14:44 | Outpatient (RCR) | payer MEDICARE ==
[2022-06-14 16:28] LABS: BASOPHILS % (AUTO) 0 % (0-10); EOSINOPHILS # (AUTO) 0.2 10^3/uL (0.0-0.3); EOSINOPHILS % (AUTO) 3 % (0-10); HEMATOCRIT 44 % (35-52); LYMPHOCYTES # (AUTO) 2.2 10^3/uL (1.0-4.0); LYMPHOCYTES % (AUTO) 35 % (12-44); MEAN CORPUSCULAR HEMOGLOBIN 31 pg (25-34); MEAN CORPUSCULAR HGB CONC 34 g/dL (32-36); MEAN CORPUSCULAR VOLUME 93 fL (80-99); MONOCYTES # (AUTO) 0.5 10^3/uL (0.0-1.0); MONOCYTES % (AUTO) 8 % (0-12); NEUTROPHILS # (AUTO) 3.3 10^3/uL (1.8-7.8); NEUTROPHILS % (AUTO) 54 % (42-75); PLATELET COUNT 221 10^3/uL (130-400); WHITE BLOOD COUNT 6.2 10^3/uL (4.3-11.0)
[2022-06-14 16:48] LABS: ALANINE AMINOTRANSFERASE 29 U/L (0-55); ALBUMIN 4.7 GM/DL (3.2-4.5); ALKALINE PHOSPHATASE 78 U/L (40-136); BILIRUBIN,TOTAL 0.9 MG/DL (0.1-1.0); BUN/CREATININE RATIO 20; CALCIUM 10.2 MG/DL (8.5-10.1); CARBON DIOXIDE 24 MMOL/L (21-32); CHLORIDE 102 MMOL/L (98-107); CREATININE SERUM 0.79 MG/DL (0.60-1.30); GFR ESTIMATED 82; GLUCOSE 99 MG/DL (70-105); SODIUM 140 MMOL/L (135-145); TOTAL PROTEIN 7.6 GM/DL (6.4-8.2)
== END 2022-06-28 | disposition home or self-care (01) ==
LOC: ONC 14:44
PROVIDERS: ATTEND Internal Medicine Hematology & Oncology
DX: D68.62 Lupus anticoagulant syndrome (principal); I10 Essential (primary) hypertension; J45.909 Unspecified asthma, uncomplicated; Z86.79 Personal history of other diseases of the circulatory system
CPT/HCPCS: 80053; 85025; 85610; 85613; 85705; 85730; 86146 ×2; 86147 ×2; G0463; 36415; 99204

== ENCOUNTER → 2022-11-22 | Outpatient (CLI) | payer MEDICARE ==
--- NOTE | 2022-11-22 16:39 | Diagnostic Imaging Report ---
INDICATION: Back pain. EXAMINATION: Lumbar spine. FINDINGS: AP, lateral, and oblique views of the lumbar spine show normal vertebral body height and alignment. There are no compression fractures. There is disc space narrowing at L5-S1. The other disc spaces are unremarkable. There are large osteophytes forming anteriorly at T12-L1. IMPRESSION: Spondylosis deformans. Degenerative disc changes at L5-S1. Lumbar spine is otherwise unremarkable. Dictated by: Dictated on workstation # [id number]
--- NOTE | 2022-11-22 16:40 | Diagnostic Imaging Report ---
INDICATION: Right hip pain. FINDINGS: Two views of the right hip show small osteophytes forming at the superolateral aspect of the acetabulum and femoral head. There is no fracture or dislocation. IMPRESSION: Mild osteoarthritic change of the right hip. Dictated by: Dictated on workstation # [id number]
== END ==
LOC: RAD 13:37
PROVIDERS: ATTEND Nurse Practitioner
DX: M16.11 Unilateral primary osteoarthritis, right hip (principal); M47.26 Other spondylosis with radiculopathy, lumbar region; M51.17 Intervertebral disc disorders with radiculopathy, lumbosacral region
CPT/HCPCS: 72110; 73502